=== PATIENT | male | born 1950 | race Caucasian/White ===

== ENCOUNTER 2025-01-02 08:57 | Emergency (ER) | payer BC ==
[2025-01-02] MEDS ORDERED: Ondansetron PF 4 MG/2 ML Vial ONE (09:45)
[2025-01-02 09:50] LABS: #Basophils 0.03 10x3/uL (0.0-0.2); #Eosinophils 0.15 10x3/uL (0.0-0.5); #Monocytes 0.85 10x3/uL (0.0-1.1); #Neutrophils 3.28 10x3/uL (1.5-8.4); %Basophils 0.5 % (0.0-2.0); %Eosinophils 2.4 % (0.0-6.0); %Lymphocytes 29.9 % (18.0-47.0); %Monocytes 13.8 % (0.0-10.0); %Neutrophils 53.1 % (40.0-75.0); Hematocrit 43.1 % (38.8-50.0); Hemoglobin 14.9 g/dL (13.5-17.5); Mean Corpuscular Hemoglobin 32.2 pg (27.0-33.0); Mean Corpuscular Volume 93.1 fL (81.2-95.1); Platelet Count 192 10x3/uL (150-450); Red Blood Cell (RBC) Count 4.63 10x6/uL (4.32-5.72); White Blood Cell (WBC) Count 6.18 10x3/uL (3.5-10.5)
[2025-01-02 10:14] LABS: ALT (SGPT) 27 U/L (Less than 45); AST (SGOT) 33 U/L (11-34); Albumin 4.0 g/dL (3.1-4.5); Alkaline Phosphatase 76 U/L (40-110); Anion Gap 12 mmol/L (10-20); BUN (Urea Nitrogen) 23 mg/dL (8.4-25.7); Bilirubin, Total 0.5 mg/dL (0.3-1.2); Calc. Creatinine Clearance 0 mL/min (70-130); Calcium 9.2 mg/dL (7.8-10.44); Carbon Dioxide 24 mmol/L (23-31); Chloride 104 mmol/L (98-107); Globulin 3.6 g/dL (2.4-3.5); Glucose 119 mg/dL (83-110); Magnesium 2.2 mg/dL (1.6-2.6); Potassium 3.2 mmol/L (3.5-5.1); Sodium 137 mmol/L (136-145)
[2025-01-02] MEDS ORDERED: Iopamidol 370 76% 100 ML VIAL ONE (10:34)
[2025-01-02 10:39] LABS: Glucose, Urine (Dipstick) Normal (Negative); Leukocyte Negative (Negative); Protein, Urine (Dipstick) Negative (Neg-Trace); Specific Gravity, Urine 1.010 (1.005-1.030)
[2025-01-02 10:51] LABS: Bacteria/HPF None Seen HPF (None Seen); CAUTI Indications for Culture Fever or rigors; RBC/HPF None Seen HPF (0-3); Urine Culture Reflex No No; WBC/HPF None Seen HPF (0-3)
== END 2025-01-02 11:42 | disposition home or self-care (01) ==
LOC: CSHERS 08:57
DX: R19.7 Diarrhea, unspecified (principal); E87.6 Hypokalemia; I10 Essential (primary) hypertension; E78.5 Hyperlipidemia, unspecified; K21.9 Gastro-esophageal reflux disease without esophagitis; Z79.899 Other long term (current) drug therapy
CPT/HCPCS: 36415; 74177; 80053; 81001; 83605; 83735; 85025; 93005; 93010; 96374; Q9967

== ENCOUNTER 2025-01-19 09:14 | Outpatient (CLI) | payer BC | END 2025-01-19 09:15 | disposition home or self-care (01) | LOC: CSHULT 09:14 | PROVIDERS: ATTEND Physician Assistant Medical | DX: R11.0 Nausea (principal); K21.9 Gastro-esophageal reflux disease without esophagitis; K76.0 Fatty (change of) liver, not elsewhere classified; N28.1 Cyst of kidney, acquired | CPT/HCPCS: 76705 ==